=== PATIENT | male | born 1945 | race Caucasian/White ===

== ENCOUNTER 2018-04-18 15:12 | Inpatient (IN) ==
[2018-04-18 16:16] LABS: Baso # (Auto) 0.1 th/mm3 (0.0-0.2); Baso % (Auto) 0.7 % (0.0-2.0); Eos # (Auto) 0.3 th/mm3 (0.0-0.4); Eos % (Auto) 4.2 % (0.0-4.0); Hematocrit 26.7 % (39.0-51.0); Hemoglobin 8.9 gm/dL (13.0-17.0); Lymph # (Auto) 0.7 th/mm3 (1.0-4.8); Lymph % (Auto) 8.3 % (9.0-44.0); Mean Corpuscular HGB Conc 33.2 % (32.0-36.0); Mean Corpuscular Hemoglobin 28.4 pg (27.0-34.0); Mean Corpuscular Volume 85.5 fL (80.0-100.0); Mean Platelet Volume 7.6 fL (7.0-11.0); Mono # (Auto) 0.7 th/mm3 (0.0-0.9); Mono % (Auto) 8.9 % (0.0-8.0); Neut # (Auto) 6.1 th/mm3 (1.8-7.7); Neut % (Auto) 77.9 % (16.0-70.0); Platelet Count 224 th/mm3 (150-450); Red Blood Count 3.13 mil/mm3 (4.50-5.90); Red Cell Distribution Width 16.4 % (11.6-17.2); White Blood Count 7.8 th/mm3 (4.0-11.0)
[2018-04-18 16:31] LABS: Activated Partial Thrombo Time 30.1 sec (23.4-31.7); Prothrombin Time 10.1 sec (9.8-11.6)
--- NOTE | 2018-04-18 16:33 | XR ---
EXAM DATE: 04/18/2018 4:26 PM EST AGE/SEX: 72 years / Male INDICATIONS: Shortness of breath. CLINICAL DATA: This is the patient's initial encounter. Patient reports that signs and symptoms have been present for 1 day and indicates a pain score of 0/10. MEDICAL/SURGICAL HISTORY: . Hypertension. Congestive heart failure. Myocardial infarction. Diab etic. COPD. None. [place] [facility] [place]. . FINDINGS: A single AP view of the chest demonstrates the lungs to be symmetrically aerated without evidence of focal consolidation or pleural effusion. The cardiomediastinal contours are at upper limits of nba l in size. Calcific thoracic aorta. Postoperative changes of the cervical spine. Degenerative change s of the thoracic spine. CONCLUSION: The cardiomediastinal contours are at upper limits of normal in size. No focal consolidation. Electronically signed by: Chantell Land MD Board Certified Radiologist 04/18/2018 4:31 PM EST
[2018-04-18 16:48] LABS: Alanine Aminotransferase 16 U/L (12-78); Anion Gap 10 meq/L (5-15); Aspartate Aminotransferase 15 U/L (15-37); Blood Urea Nitrogen 23 mg/dL (7-18); Calcium 8.5 mg/dL (8.5-10.1); Carbon Dioxide 26.2 meq/L (21.0-32.0); Chloride 106 meq/L (98-107); Glomerular Filtration Rate 47 mL/min (>89); Glucose,Random 206 mg/dL (74-106); Potassium 4.1 meq/L (3.5-5.1); Sodium 142 meq/L (136-145)
[2018-04-18 16:53] LABS: Alkaline Phosphatase 145 U/L (45-117); Total Protein 7.4 g/dL (6.4-8.2)
[2018-04-18 16:55] LABS: Creatine Kinase 33 U/L (39-308)
--- NOTE | 2018-04-18 17:25 | ED ---
HPI General Chief complaint: Respiratory Symptoms Stated complaint: Resp Time Seen by Provider: 04/18/18 15:29 Source: patient and family Mode of arrival: ambulatory Limitations: no limitations History of Present Illness HPI narrative: 72-year-old male who presents to the ED for evaluation of shortness of breath with exertion. Per patient he has had shortness of breath with exertion in the past and positive ostomy. He has had significant cardiac workup in the past but nothing recently. He states that he had a stress test in the past this is been a while. He denies any history of CHF. He denies any history of COPD. He states that overall he went to the [facility] in [place] and they were doing a lot of hiking and moving around and he started feeling very short of breath with exertion having some chest discomfort as well. Denies any fevers chills or sweats. No cough. No congestion. No abdominal pain. No nausea or vomiting. No bowel movement or urinary issues. Patient states currently he has no chest pain whatsoever. He has no pain. Currently asymptomatic and states this only when he ambulates for a little bit. Related Data Home Medications Medication Instructions Recorded Confirmed atorvastatin 40 mg PO DAILY 04/18/18 04/18/18 bupropion HCl 300 mg PO QAM 04/18/18 04/18/18 carvedilol 25 mg PO DAILY 04/18/18 04/18/18 metformin 1,000 mg PO BID 04/18/18 04/18/18 olmesartan-hydrochlorothiazide 1 tab PO DAILY 04/18/18 04/18/18 [Benicar HCT] pioglitazone [Actos] 45 mg PO DAILY 04/18/18 04/18/18 sitagliptin [Januvia] 100 mg PO DAILY 04/18/18 04/18/18 Allergies Allergy/AdvReac Type Severity Reaction Status Date / Time penicillin G Allergy Severe hives Verified 04/18/18 15:42 Sulfa (Sulfonamide Allergy Severe hives Verified 04/18/18 15:42 Antibiotics) Review of Systems ROS: all other systems reviewed are negative [facility] Medical History Medical History CPAP (continuous positive airway pressure) dependence (Acute) Diabetes (Acute) Hypertension (Acute) Myocardial infarct (Acute) Surgical History Surgical History H/O neck surgery (Acute) Social History Social History Substance History: No History of Abuse Smoking Status: Former smoker Tobacco Type: Cigarettes How Often Do You Have a Drink Containing Alcohol: 2 to 4 times a month Recent Travel in [facility] within the Last 8 Weeks: No Recent Out of Country Travel within the Last 8 Weeks: No Immunization History Tetanus Immunization: >5 Years Exam Narrative Exam Narrative: GENERAL: Well appearing. SKIN: Focused skin assessment warm/dry. HEAD: Atraumatic. Normocephalic. EYES: Pupils equal and round. No scleral icterus. No injection or drainage. ENT: No nasal bleeding or discharge. Mucous membranes pink and moist. Tongue is midline. No Uvula deviation. NECK: Trachea midline. No JVD. CARDIOVASCULAR: Regular rate and rhythm. No murmur appreciated. RESPIRATORY: No accessory muscle use. Clear to auscultation. Breath sounds equal bilaterally. GASTROINTESTINAL: Abdomen soft, non-tender, nondistended. Hepatic and splenic margins not palpable. MUSCULOSKELETAL: No obvious deformities. No clubbing. No cyanosis. No edema. Full range of motion of the upper and lower extremities bilaterally. 2+ pulses bilaterally. Patient does have some 1+ pitting edema in the lower extremities which per patient is chronic. NEUROLOGICAL: Awake and alert. No obvious cranial nerve deficits. Motor grossly within normal limits. Normal speech. PSYCHIATRIC: Appropriate mood and affect; insight and judgment normal. Course Initial Documented Vital Signs Temperature 98.1 F 04/18/18 15:24 Pulse Rate 94 H 04/18/18 15:24 Respiratory Rate 20 04/18/18 15:24 Blood Pressure 169/72 H 04/18/18 15:24 Pulse Oximetry 96 04/18/18 15:24 Last Documented Vital Signs Temperature 98.1 F 04/18/18 15:24 Pulse Rate 87 04/18/18 16:05 Respiratory Rate 18 04/18/18 16:05 Blood Pressure 173/77 H 04/18/18 15:34 Pulse Oximetry 98 04/18/18 16:00 Medical Decision Making MDM Narrative Medical decision making narrative: 72-year-old male who presents to the ED for evaluation of shortness of breath with exertion. Patient was properly examined and was found to have signs and symptoms of unclear etiology. Labs and imaging were ordered. Labs and imaging showed positive d-dimer. CTA was done. CTA did not show any sign of acute disease certain what appears to be some calcifications of the arteries of the heart as well as nodules on the lung. Patient was told of results. Case was discussed with my attending and with what agreed that this could potentially be angina equivalent. Patient has difficulty breathing after exerting himself. He does have a history of heart disease. Cannot completely rule out angina equivalent. Because of this I do recommend admission for further evaluation and treatment and likely stress test. Patient agrees with admission to the chest pain center for further evaluation and treatment. Case discussed with Dr. Sen my attending who agrees with this plan. Medical Screen Exam Complete: Yes Emergency Medical Condition: Yes Differential Diagnosis Differential Diagnosis: ACS versus COPD versus angina equivalent versus PE versus pneumonia versus bronchitis versus CHF Medical Records Medical records reviewed: Yes I reviewed the patient's medical records. Lab Data Lab results reviewed: Yes I reviewed the patient's lab results. Result diagrams: 04/18/18 16:00 04/18/18 16:00 Lab Results 04/18/18 04/18/18 04/18/18 Range/Units 16:00 16:00 16:00 WBC 7.8 (4.0-11.0) th/mm3 RBC 3.13 L (4.50-5.90) mil/mm3 Hgb 8.9 L (13.0-17.0) gm/dL Hct 26.7 L (39.0-51.0) % MCV 85.5 (80.0-100.0) fL MCH 28.4 (27.0-34.0) pg MCHC 33.2 (32.0-36.0) % RDW 16.4 (11.6-17.2) % Plt Count 224 (150-450) th/mm3 MPV 7.6 (7.0-11.0) fL Neut % (Auto) 77.9 H (16.0-70.0) % Lymph % (Auto) 8.3 L (9.0-44.0) % Millard % (Auto) 8.9 H (0.0-8.0) % Eos % (Auto) 4.2 H (0.0-4.0) % Baso % (Auto) 0.7 (0.0-2.0) % Neut # (Auto) 6.1 (1.8-7.7) th/mm3 Lymph # (Auto) 0.7 L (1.0-4.8) th/mm3 Millard # (Auto) 0.7 (0.0-0.9) th/mm3 Eos # (Auto) 0.3 (0.0-0.4) th/mm3 Baso # (Auto) 0.1 (0.0-0.2) th/mm3 WBC Differential . Differential Comment Auto diff final PT 10.1 (9.8-11.6) sec INR 1.0 Ratio APTT 30.1 (23.4-31.7) sec D-Dimer Quant (PE/DVT) (0.00-0.50) mg/L FEU Sodium 142 (136-145) meq/L Potassium 4.1 (3.5-5.1) meq/L Chloride 106 (98-107) meq/L Carbon Dioxide 26.2 (21.0-32.0) meq/L Anion Gap 10 (5-15) meq/L BUN 23 H (7-18) mg/dL Creatinine 1.46 H (0.60-1.30) mg/dL Estimated GFR 47 L (>89) mL/min Random Glucose 206 H (74-106) mg/dL Calcium 8.5 (8.5-10.1) mg/dL Total Bilirubin 0.5 (0.2-1.0) mg/dL AST 15 (15-37) U/L ALT 16 (12-78) U/L Alkaline Phosphatase 145 H (45-117) U/L Total Creatine Kinase 33 L (39-308) U/L Troponin I Less than 0.02 L (0.02-0.05) ng/mL B-Natriuretic Peptide (0-100) pg/mL Total Protein 7.4 (6.4-8.2) g/dL Albumin 3.0 L (3.4-5.0) g/dL 04/18/18 04/18/18 Range/Units 16:00 16:00 WBC (4.0-11.0) th/mm3 RBC (4.50-5.90) mil/mm3 Hgb (13.0-17.0) gm/dL Hct (39.0-51.0) % MCV (80.0-100.0) fL MCH (27.0-34.0) pg MCHC (32.0-36.0) % RDW (11.6-17.2) % Plt Count (150-450) th/mm3 MPV (7.0-11.0) fL Neut % (Auto) (16.0-70.0) % Lymph % (Auto) (9.0-44.0) % Millard % (Auto) (0.0-8.0) % Eos % (Auto) (0.0-4.0) % Baso % (Auto) (0.0-2.0) % Neut # (Auto) (1.8-7.7) th/mm3 Lymph # (Auto) (1.0-4.8) th/mm3 Millard # (Auto) (0.0-0.9) th/mm3 Eos # (Auto) (0.0-0.4) th/mm3 Baso # (Auto) (0.0-0.2) th/mm3 WBC Differential Differential Comment PT (9.8-11.6) sec INR Ratio APTT (23.4-31.7) sec D-Dimer Quant (PE/DVT) 4.37 H (0.00-0.50) mg/L FEU Sodium (136-145) meq/L Potassium (3.5-5.1) meq/L Chloride (98-107) meq/L Carbon Dioxide (21.0-32.0) meq/L Anion Gap (5-15) meq/L BUN (7-18) mg/dL Creatinine (0.60-1.30) mg/dL Estimated GFR (>89) mL/min Random Glucose (74-106) mg/dL Calcium (8.5-10.1) mg/dL Total Bilirubin (0.2-1.0) mg/dL AST (15-37) U/L ALT (12-78) U/L Alkaline Phosphatase (45-117) U/L Total Creatine Kinase (39-308) U/L Troponin I (0.02-0.05) ng/mL B-Natriuretic Peptide 170 H (0-100) pg/mL Total Protein (6.4-8.2) g/dL Albumin (3.4-5.0) g/dL Imaging Data Attestation: I personally reviewed and interpreted this imaging study as follows : Radiologist's impression: Chest X-Ray 04/18/18 15:49 CONCLUSION: The cardiomediastinal contours are at upper limits of normal in size. No focal consolidation. Chest CTA 04/18/18 17:37 CONCLUSION: 1. No CT evidence for pulmonary artery embolism as questioned. 2. 11 mm right upper lobe subpleural nodule, stable in comparison to report of 2014 CT exam. Therefore, likely benign. 3. 5 mm nodule in the right middle lobe adjacent a calcified granuloma. This was not previously reported although prior exams are not available for direct comparison. Routine follow-up of sub-6 mm nodules is not recommended by 2017 Fleischner criteria. However, 6-12 month follow-up exam may be obtained if patient is at high risk. 4. Coronary artery calcifications. ECG Data Attestation: I personally reviewed and interpreted this ECG as follows: Interpretation: EKG shows sinus rhythm with some PVCs. AZ interval 174 ms, ventricular rate of 82 bpm. No sign of ST elevation or ischemia. Discharge Plan Discharge Disposition Patient Disposition: ED Admit(ED Internal Use Only) Discharge Order Discharge Orders: ED Use Only Admit Order (Routine); Ordered 04/18/18 Ordered By: Osvaldo Rodríguez Discharge Details Diagnosis: Chest pain, rule out acute myocardial infarction Physicians Team ED Provider: Trish Sen ED Midlevel Provider: Osvaldo Rodríguez Primary Care Provider: Jonathan Rey Rxs /Orders / Referrals /Forms Prescriptions: No Action atorvastatin 40 mg Tablet 40 mg PO DAILY RF: 0 carvedilol 25 mg Tablet 25 mg PO DAILY RF: 0 pioglitazone [Actos] 45 mg Tablet 45 mg PO DAILY RF: 0 metformin 1,000 mg Tablet 1,000 mg PO BID RF: 0 olmesartan-hydrochlorothiazide [Benicar HCT] 40-12.5 mg Tablet 1 tab PO DAILY RF: 0 bupropion HCl 300 mg Tablet Extended Release 24 Hr 300 mg PO QAM RF: 0 sitagliptin [Januvia] 100 mg Tablet 100 mg PO DAILY RF: 0 Discharge Interventions Interventions: Vital Signs Last Done: 04/18/18 15:34 Status ED Status: Admitted Observation Patient
--- NOTE | 2018-04-18 18:06 | CT ---
EXAM DATE: 04/18/2018 5:59 PM EST AGE/SEX: 72 years / Male INDICATIONS: Dyspnea CLINICAL DATA: This is the patient's initial encounter. Patient reports that signs and symptoms have been present for 2 days and indicates a pain score of 6/10. MEDICAL/SURGICAL HISTORY: Diabetes. Hypertension. Myocardial infarction. . Neck Surgery RADIATION DOSE: 10.75 CTDI (mGy) COMPARISON: [facility] – [place] PULMONARY ANGIOGRAM, 01/07/2014. . TECHNIQUE: Volumetric scanning was performed using a multi-row detector CT scanner during bolus infu tahmina of 74 ml Omnipaque 350 (iohexol) nonionic water-soluble contrast as a single exam dose. The nidhi a was post processed with a variety of visualization algorithms including full volume maximum intensi ty projection and sliding thin slab reformation. Using automated exposure control and adjustment of the mA and/or kV according to patient size, radiation dose was kept as low as reasonably achievable t o obtain optimal diagnostic quality images. DICOM format image data is available electronically for review and comparison. FINDINGS: Pulmonary Arteries: No filling defects are seen in the pulmonary arteries through the segmental vess els. The main pulmonary artery is normal in diameter. Lung: There is an 11 mm subpleural nodule in the right upper lobe posteriorly which is unchanged in comparison to report of remote prior exam. There is a 5 mm nodule in the superior right middle lobe a djacent a calcified granuloma. This was not previously reported. Minimal airspace consolidation at th e lung bases bilaterally adjacent pleural fluid. Pleura: Trace right-sided pleural effusion and very subtle left-sided pleural effusion. Mediastinum: Heart is grossly unremarkable without significant pericardial effusion. Coronary artery calcifications. Subcentimeter mediastinal and right hilar lymph nodes are noted. Osseous Structures: No abnormal focal lytic or blastic bony lesions. Degenerative spondylosis of the thoracic spine. Other: Visulaized upper abdomen is unremarkable. CONCLUSION: 1. No CT evidence for pulmonary artery embolism as questioned. 2. 11 mm right upper lobe subpleural nodule, stable in comparison to report of 2014 CT exam. Therefo re, likely benign. 3. 5 mm nodule in the right middle lobe adjacent a calcified granuloma. This was not previously repo rted although prior exams are not available for direct comparison. Routine follow-up of sub-6 mm nodu les is not recommended by 2017 Fleischner criteria. However, 6-12 month follow-up exam may be obtaine d if patient is at high risk. 4. Coronary artery calcifications. Electronically signed by: Pedro Pablo Pleitez MD Board Certified Radiologist 04/18/2018 6:05 PM BEENA T
[2018-04-18] MEDS ORDERED: Acetaminophen 500 MG Tablet PO PRN (18:29)
[2018-04-18 20:03] LABS: Creatine Kinase 32 U/L (39-308)
[2018-04-18 22:40] LABS: Creatine Kinase 38 U/L (39-308)
[2018-04-19] MEDS: Carvedilol 12.5 MG Tablet PO SCH (08:27)
[2018-04-19] MEDS: buPROPion 100 MG Tablet PO SCH (08:28)
[2018-04-19] MEDS: hydroCHLOROthiazide 25 MG Tablet PO SCH (08:30)
--- NOTE | 2018-04-19 11:48 | P.HPCA ---
History of Present Illness Primary Care Physician: Jonathan Rey MD Chief Complaint: Exertional dyspnea History of Present Illness: 72-year-old male with history of type 2 diabetes, hypertension, peripheral artery disease, and sleep apnea presents the emergency room for exertional dyspnea. Onset 04/13/18. Becomes dyspneic after walking short distances which is new to him. Dyspnea accompanied with chest tightness. Generally recovers from dyspnea and chest tightness within 3-5 minutes of resting. No other associated symptoms of nausea, vomiting, or diaphoresis. Denies known congestive heart failure. No orthopnea. follows with Dr. Carias. No recent cardiac testing. Does not recall the past cardiac catheterization, although reports being told had a myocardial infarction by his cardiology technologist. No change in chronic pedal edema or weight gain. Hemoglobin 8.9. Denies history of anemia. Reports 1 week black tarry stools. No history gastric ulcers or GERD. Occasionally takes ibuprofen 800 mg for left hip pain, however limites self from taking past 4 days consecutively. History of colonoscopy reported to be normal 2 years ago. Does not recall having had EGD. No recent illness, fever, or injury. Past cardiac testing Per reviewed medical records had a nuclear stress test February 02 showing evidence for prior inferior OH with basal inferolateral ischemia and had been treated medically. Social history Known diabetes, hypertension, coronary artery disease, and hyperlipidemia. Known peripheral arterial disease. Former 3 pack a day smoker, quit 20 years ago. . 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 Endorses sedentary lifestyle. - Diagnosis (1) Dyspnea on exertion (2) Anemia (3) Type 2 diabetes mellitus (4) Black tarry stools Review of Systems All other systems reviewed negative except as stated in HPI PMFSH - History History Provided By: Patient - Medical History Medical History: Medical History (Last Updated 04/19/18 @ 13:57 by EVIE Coyne) Cervical disc disease Chronic kidney disease, stage III (moderate) Congestive heart failure Diabetes Hyperlipidemia Hypertension Myocardial infarct Osteoarthritis Peripheral arterial disease Sleep apnea - Surgical History Surgical History: Surgical History (Last Updated 04/19/18 @ 13:58 by EVIE Coyne) H/O cervical spine surgery H/O neck surgery - Tobacco History Second Hand Smoke Exposure: No Tobacco Use In Past 30 Days: No Smoking Status: Former smoker Tobacco Type: Cigarettes Number of Pack Years (if former smoker): 96 Smoking End Date: 20 years ago - Alcohol History How Often Do You Have a Drink Containing Alcohol: Monthly or less - Substance Use History Substance History: No History of Abuse - Travel History Recent Travel in the [place] Within the Last 8 Weeks: No Recent Travel Out of the Country Within the Last 8 Weeks: No - Immunization History Tetanus Immunization: >5 Years Medications and Allergies Active Medications: Active Medications Acetaminophen (Tylenol) 500 mg PO Q4H PRN PRN Reason: HEADACHE Hydrocodone Bitart/Acetaminophen ([place] 7.5/325) 1 tab PO Q4H PRN PRN Reason: PAIN SCALE 1 TO 7 Atorvastatin Calcium (Lipitor) 40 mg PO DAILY [facility] Last Admin: 04/19/18 08:27 Dose: 40 mg Bupropion HCl (Wellbutrin) 300 mg PO DAILY [facility] Last Admin: 04/19/18 08:28 Dose: 300 mg Carvedilol (Coreg) 25 mg PO DAILY [facility] Last Admin: 04/19/18 08:27 Dose: 25 mg Hydrochlorothiazide (Hydrodiuril) 12.5 mg PO DAILY [facility] Last Admin: 04/19/18 08:30 Dose: 12.5 mg Losartan Potassium (Cozaar) 100 mg PO DAILY [facility] Last Admin: 04/19/18 08:27 Dose: 100 mg Miscellaneous (Pill Splitter) 1 each OTHER UNSCH [facility] Ondansetron HCl (Zofran Inj) 4 mg IV.PUSH Q6H PRN PRN Reason: NAUSEA Sodium Chloride (Ns Flush) 2 ml IV.FLUSH BID [facility] Last Admin: 04/19/18 08:28 Dose: 2 ml Sodium Chloride (Ns Flush) 2 ml IV.FLUSH PRN PRN PRN Reason: FLUSH AFTER USING IV ACCESS Allergies Allergy/AdvReac Type Severity Reaction Status Date / Time penicillin G Allergy Severe hives Verified 04/18/18 15:42 Sulfa (Sulfonamide Allergy Severe hives Verified 04/18/18 15:42 Antibiotics) Home Medications Medication Instructions Recorded Confirmed Type atorvastatin 40 mg PO DAILY 04/18/18 04/18/18 History bupropion HCl 300 mg PO QAM 04/18/18 04/18/18 History carvedilol 25 mg PO DAILY 04/18/18 04/18/18 History metformin 1,000 mg PO BID 04/18/18 04/18/18 History olmesartan-hydrochlorothiazide 1 tab PO DAILY 04/18/18 04/18/18 History [Benicar HCT] pioglitazone [Actos] 45 mg PO DAILY 04/18/18 04/18/18 History sitagliptin [Januvia] 100 mg PO DAILY 04/18/18 04/18/18 History Exam Vital signs: Vital Signs 04/18/18 15:24 04/18/18 15:30 04/18/18 15:34 Temperature 98.1 F Pulse Rate 94 H 87 Respiratory Rate 20 18 Blood Pressure 169/72 H 173/77 H Pulse Oximetry 96 94 L 98 04/18/18 16:00 04/18/18 16:05 04/18/18 18:37 Temperature Pulse Rate 87 83 Respiratory Rate 18 18 Blood Pressure Pulse Oximetry 98 98 04/18/18 19:18 04/18/18 20:00 04/18/18 20:15 Temperature 96.6 F L Pulse Rate 77 89 79 Respiratory Rate 18 17 Blood Pressure 105/49 L 179/81 H Pulse Oximetry 98 94 L 04/19/18 04:20 04/19/18 04:33 04/19/18 05:08 Temperature 97.7 F Pulse Rate 88 86 84 Respiratory Rate 18 Blood Pressure 149/69 H Pulse Oximetry 98 04/19/18 07:10 Temperature 96.7 F L Pulse Rate 88 Respiratory Rate 20 Blood Pressure 189/84 H Pulse Oximetry 97 Intake & Output 04/18/18 04/19/18 04/19/18 18:59 06:59 18:59 Weight 122.47 kg 122.47 kg Other: Date of Last Bowel Movement 04/18/18 04/18/18 Narrative: GENERAL: Alert WN, WD, NAD, pleasant, obese, male HEAD: NC, AT NECK: Supple, no masses, trachea midline CV: RRR, without murmur, rub, or gallop RESP: Clear lungs throughout bilateral, no crackles, wheeze, rhonchi, symmetrical chest rise, nonlabored, able to speak in full sentences ABD: Soft, NT, ND, no masses, positive bowel tone, grossly obese EXT: Pulses +2x4, +2 lower extremity dependent edema MS: Normal tone x4 extremities, nontender, no obvious deformities, full range of motion NEURO: Motor strength 5/5 PSYCH: A+O x3, pleasant affect, appropriate speech, mood, insight and judgment SKIN: Normal turgor, normal texture, no lesions, no rashes, brisk cap refill, even hair distribution Results 04/18/18 16:00 04/18/18 16:00 Cardiac Enzymes 04/18/18 04/18/18 04/18/18 Range/Units 16:00 16:00 19:24 AST 15 (15-37) U/L Troponin I Less than 0.02 L Less than 0.02 L (0.02-0.05) ng/mL B-Natriuretic Peptide 170 H (0-100) pg/mL 04/18/18 Range/Units 21:45 AST (15-37) U/L Troponin I Less than 0.02 L (0.02-0.05) ng/mL B-Natriuretic Peptide (0-100) pg/mL Coagulation 04/18/18 04/18/18 Range/Units 16:00 16:00 PT 10.1 (9.8-11.6) sec APTT 30.1 (23.4-31.7) sec B-Natriuretic Peptide 170 H (0-100) pg/mL CBC 04/18/18 Range/Units 16:00 WBC 7.8 (4.0-11.0) th/mm3 RBC 3.13 L (4.50-5.90) mil/mm3 Hgb 8.9 L (13.0-17.0) gm/dL Hct 26.7 L (39.0-51.0) % Plt Count 224 (150-450) th/mm3 Neut # (Auto) 6.1 (1.8-7.7) th/mm3 Lymph # (Auto) 0.7 L (1.0-4.8) th/mm3 [place] # (Auto) 0.7 (0.0-0.9) th/mm3 Eos # (Auto) 0.3 (0.0-0.4) th/mm3 Baso # (Auto) 0.1 (0.0-0.2) th/mm3 Comprehensive Metabolic Panel 04/18/18 Range/Units 16:00 Sodium 142 (136-145) meq/L Potassium 4.1 (3.5-5.1) meq/L Chloride 106 (98-107) meq/L Carbon Dioxide 26.2 (21.0-32.0) meq/L BUN 23 H (7-18) mg/dL Creatinine 1.46 H (0.60-1.30) mg/dL Calcium 8.5 (8.5-10.1) mg/dL AST 15 (15-37) U/L ALT 16 (12-78) U/L Alkaline Phosphatase 145 H (45-117) U/L Total Protein 7.4 (6.4-8.2) g/dL Albumin 3.0 L (3.4-5.0) g/dL Intake and Output 04/18/18 04/19/18 04/19/18 22:59 06:59 14:59 Other: Date of Last Bowel Movement 04/18/18 04/18/18 Weight 122.47 kg - Imaging and Cardiology Imaging: Impressions Chest X-Ray 04/18/18 15:49 CONCLUSION: The cardiomediastinal contours are at upper limits of normal in size. No focal consolidation. Chest CTA 04/18/18 17:37 CONCLUSION: 1. No CT evidence for pulmonary artery embolism as questioned. 2. 11 mm right upper lobe subpleural nodule, stable in comparison to report of 2014 CT exam. Therefore, likely benign. 3. 5 mm nodule in the right middle lobe adjacent a calcified granuloma. This was not previously reported although prior exams are not available for direct comparison. Routine follow-up of sub-6 mm nodules is not recommended by 2017 Fleischner criteria. However, 6-12 month follow-up exam may be obtained if patient is at high risk. 4. Coronary artery calcifications. EKG interpretations - EKG EKG results cardiology: sinus rhythm, normal axis, normal QRS, normal ST/T (PVCs ) Caprini VTE Risk Assessment Caprini VTE Risk Assessment: Moderate/High Risk (score >= 2) Caprini Risk Assessment Model: Point Value = 1 Point Value = 2 Point Value = 3 Point Value = 5 Age 41-60 Minor surgery BMI > 25 kg/m2 Swollen legs Varicose veins or History of unexplained or recurrent spontaneous Oral contraceptives or hormone replacement Sepsis (< 1 month) Serious lung disease, including pneumonia (< 1 month) Abnormal pulmonary function Acute myocardial infarction Congestive heart failure (< 1 month) History of inflammatory bowel disease Medical patient at bed rest Age 61-74 Arthroscopic surgery Major open surgery (> 45 min) Laparoscopic surgery (> 45 min) Malignancy Confined to bed (> 72 hours) Immobilizing plaster cast Central venous access Age >= 75 History of VTE Family history of VTE Factor V Leiden Prothrombin [id number] Lupus anticoagulant Anticardiolipin antibodies Elevated serum homocysteine Heparin-induced thrombocytopenia Other congenital or acquired thrombophilia Stroke (< 1 month) Elective arthroplasty Hip, pelvis, or leg fracture Acute spinal cord injury (< 1 month) Prophylaxis Regimen: Total Risk Factor Score Risk Level Prophylaxis Regimen 0-1 Low Early ambulation 2 Moderate Order ONE of the following: *Sequential Compression Device (SCD) *Heparin 5000 units SQ BID 3-4 Higher Order ONE of the following medications: *Heparin 5000 units SQ TID *Enoxaparin/Lovenox 40 mg SQ daily (WT < 150 kg, CrCl > 30 mL/min) *Enoxaparin/Lovenox 30 mg SQ daily (WT < 150 kg, CrCl > 10-29 mL/min) *Enoxaparin/Lovenox 30 mg SQ BID (WT < 150 kg, CrCl > 30 mL/min) AND/OR *Sequential Compression Device (SCD) 5 or more Highest Order ONE of the following medications: *Heparin 5000 units SQ TID (Preferred with Epidurals) *Enoxaparin/Lovenox 40 mg SQ daily (WT < 150 kg, CrCl > 30 mL/min) *Enoxaparin/Lovenox 30 mg SQ daily (WT < 150 kg, CrCl > 10-29 mL/min) *Enoxaparin/Lovenox 30 mg SQ BID (WT < 150 kg, CrCl > 30 mL/min) AND *Sequential Compression Device (SCD) Assessment and Plan - Assessment (1) Dyspnea on exertion Code(s): R06.09 - Other forms of dyspnea Status: Acute Plan: Admitted chest pain center. ACS ruled out 3 sets of EKGs and cardiac enzymes. Will be seen and evaluated by Dr. Estuardo Stokes. Dyspnea may be related to low hemoglobin of 8.9. Discussed likely will get evaluation from GI prior to any further cardiac testing. The disposition of follow after evaluation by cardiology technologist. (2) Anemia Code(s): D64.9 - Anemia, unspecified Status: Acute Plan: Occult stool, reports black tarry stools. Likely will obtain GI consult and admit as inpatient. (3) Type 2 diabetes mellitus Code(s): E11.9 - Type 2 diabetes mellitus without complications Status: Chronic Plan: Hold oral anti-glycemic's at this time (4) Black tarry stools Code(s): K92.1 - Melena Status: Acute Plan: Discussed with Dr. Stokes. Admit to hospitalist and obtain GI consult. Obtain occult stool. H&P: Quality - VTE Deep Vein Thrombosis/Pulmonary Embolism Present on Admission: No (2) Anemia Qualifiers: Anemia type: unspecified type Qualified Code(s): D64.9 - Anemia, unspecified
--- NOTE | 2018-04-19 12:18 | P.PNCA ---
Subjective Interval history: 72-year-old gentleman presented by the nurse practitioner and then subsequently seen and evaluated by me personally. History is as reported in her dictation. In essence this gentleman had blood in his stools followed by black stools now for several weeks associated with shortness of breath and now a documented anemia of hemoglobin 8.9. His evaluation in the emergency room has revealed several nodules of the lungs 1 of which appears to be stable one possibly new and also calcified coronary arteries. Patient is followed on an outpatient basis by Dr. Rey and Dr. Carias who is followed him since a heart attack 2 years ago. In addition he has a long history of hypertension and about a 20+ year history of diabetes. It is interesting to note that he did not contacted Dr. Rey when he noted he had the blood in his stool or the "black tarry stools". Further inpatient evaluation is felt essential at this time and I made him aware of why that was the case. Medications and Allergies Active Medications: Active Medications Acetaminophen (Tylenol) 500 mg PO Q4H PRN PRN Reason: HEADACHE Hydrocodone Bitart/Acetaminophen ([place] 7.5/325) 1 tab PO Q4H PRN PRN Reason: PAIN SCALE 1 TO 7 Atorvastatin Calcium (Lipitor) 40 mg PO DAILY [facility] Last Admin: 04/19/18 08:27 Dose: 40 mg Bupropion HCl (Wellbutrin) 300 mg PO DAILY [facility] Last Admin: 04/19/18 08:28 Dose: 300 mg Carvedilol (Coreg) 25 mg PO DAILY [facility] Last Admin: 04/19/18 08:27 Dose: 25 mg Hydrochlorothiazide (Hydrodiuril) 12.5 mg PO DAILY [facility] Last Admin: 04/19/18 08:30 Dose: 12.5 mg Losartan Potassium (Cozaar) 100 mg PO DAILY [facility] Last Admin: 04/19/18 08:27 Dose: 100 mg Miscellaneous (Pill Splitter) 1 each OTHER UNSCH [facility] Ondansetron HCl (Zofran Inj) 4 mg IV.PUSH Q6H PRN PRN Reason: NAUSEA Sodium Chloride (Ns Flush) 2 ml IV.FLUSH BID [facility] Last Admin: 04/19/18 08:28 Dose: 2 ml Sodium Chloride (Ns Flush) 2 ml IV.FLUSH PRN PRN PRN Reason: FLUSH AFTER USING IV ACCESS Allergies Allergy/AdvReac Type Severity Reaction Status Date / Time penicillin G Allergy Severe hives Verified 04/18/18 15:42 Sulfa (Sulfonamide Allergy Severe hives Verified 04/18/18 15:42 Antibiotics) Home Medications Medication Instructions Recorded Confirmed Type atorvastatin 40 mg PO DAILY 04/18/18 04/18/18 History bupropion HCl 300 mg PO QAM 04/18/18 04/18/18 History carvedilol 25 mg PO DAILY 04/18/18 04/18/18 History metformin 1,000 mg PO BID 04/18/18 04/18/18 History olmesartan-hydrochlorothiazide 1 tab PO DAILY 04/18/18 04/18/18 History [Benicar HCT] pioglitazone [Actos] 45 mg PO DAILY 04/18/18 04/18/18 History sitagliptin [Januvia] 100 mg PO DAILY 04/18/18 04/18/18 History Physical Exam Vital signs: Vital Signs 04/18/18 15:24 04/18/18 15:30 04/18/18 15:34 Temperature 98.1 F Pulse Rate 94 H 87 Respiratory Rate 20 18 Blood Pressure 169/72 H 173/77 H Pulse Oximetry 96 94 L 98 04/18/18 16:00 04/18/18 16:05 04/18/18 18:37 Temperature Pulse Rate 87 83 Respiratory Rate 18 18 Blood Pressure Pulse Oximetry 98 98 04/18/18 19:18 04/18/18 20:00 04/18/18 20:15 Temperature 96.6 F L Pulse Rate 77 89 79 Respiratory Rate 18 17 Blood Pressure 105/49 L 179/81 H Pulse Oximetry 98 94 L 04/19/18 04:20 04/19/18 04:33 04/19/18 05:08 Temperature 97.7 F Pulse Rate 88 86 84 Respiratory Rate 18 Blood Pressure 149/69 H Pulse Oximetry 98 04/19/18 07:10 04/19/18 08:00 04/19/18 11:58 Temperature 96.7 F L 98.4 F Pulse Rate 88 85 83 Respiratory Rate 20 20 Blood Pressure 189/84 H 178/81 H Pulse Oximetry 97 100 Intake & Output 04/18/18 04/19/18 04/19/18 18:59 06:59 18:59 Weight 122.47 kg 122.47 kg Other: Date of Last Bowel Movement 04/18/18 04/18/18 Narrative: Somewhat obese white man sitting at the side of his bed in no distress at this time. He does demonstrate a slight pallor to his skin and mucous membranes. Neck supple no JVD masses nodes or bruits Chest significantly decreased breath sounds but no rales wheezes or rhonchi Cardiovascular regular rhythm with an occasional extrasystole no gallops or rubs Abdomen soft no guarding or rebound no masses palpable Results 04/18/18 16:00 04/18/18 16:00 Cardiac Enzymes 04/18/18 04/18/18 04/18/18 Range/Units 16:00 16:00 19:24 AST 15 (15-37) U/L Troponin I Less than 0.02 L Less than 0.02 L (0.02-0.05) ng/mL B-Natriuretic Peptide 170 H (0-100) pg/mL 04/18/18 Range/Units 21:45 AST (15-37) U/L Troponin I Less than 0.02 L (0.02-0.05) ng/mL B-Natriuretic Peptide (0-100) pg/mL Coagulation 04/18/18 04/18/18 Range/Units 16:00 16:00 PT 10.1 (9.8-11.6) sec APTT 30.1 (23.4-31.7) sec B-Natriuretic Peptide 170 H (0-100) pg/mL CBC 04/18/18 Range/Units 16:00 WBC 7.8 (4.0-11.0) th/mm3 RBC 3.13 L (4.50-5.90) mil/mm3 Hgb 8.9 L (13.0-17.0) gm/dL Hct 26.7 L (39.0-51.0) % Plt Count 224 (150-450) th/mm3 Neut # (Auto) 6.1 (1.8-7.7) th/mm3 Lymph # (Auto) 0.7 L (1.0-4.8) th/mm3 [place] # (Auto) 0.7 (0.0-0.9) th/mm3 Eos # (Auto) 0.3 (0.0-0.4) th/mm3 Baso # (Auto) 0.1 (0.0-0.2) th/mm3 Comprehensive Metabolic Panel 04/18/18 Range/Units 16:00 Sodium 142 (136-145) meq/L Potassium 4.1 (3.5-5.1) meq/L Chloride 106 (98-107) meq/L Carbon Dioxide 26.2 (21.0-32.0) meq/L BUN 23 H (7-18) mg/dL Creatinine 1.46 H (0.60-1.30) mg/dL Calcium 8.5 (8.5-10.1) mg/dL AST 15 (15-37) U/L ALT 16 (12-78) U/L Alkaline Phosphatase 145 H (45-117) U/L Total Protein 7.4 (6.4-8.2) g/dL Albumin 3.0 L (3.4-5.0) g/dL Intake and Output 04/18/18 04/19/18 04/19/18 22:59 06:59 14:59 Other: Date of Last Bowel Movement 04/18/18 04/18/18 Weight 122.47 kg - Imaging and Cardiology Imaging: Impressions Chest X-Ray 04/18/18 15:49 CONCLUSION: The cardiomediastinal contours are at upper limits of normal in size. No focal consolidation. Chest CTA 04/18/18 17:37 CONCLUSION: 1. No CT evidence for pulmonary artery embolism as questioned. 2. 11 mm right upper lobe subpleural nodule, stable in comparison to report of 2014 CT exam. Therefore, likely benign. 3. 5 mm nodule in the right middle lobe adjacent a calcified granuloma. This was not previously reported although prior exams are not available for direct comparison. Routine follow-up of sub-6 mm nodules is not recommended by 2017 Fleischner criteria. However, 6-12 month follow-up exam may be obtained if patient is at high risk. 4. Coronary artery calcifications. Assessment and Plan - Plan This patient has a known history of coronary artery disease with a previous LA and is now significantly anemic with a reported "black tarry stools". In addition he has some nondescript nodules in his lungs and an EKG showing some slight flattening of the T waves possible ischemic. He is certainly not a candidate for further cardiac evaluation by stress testing at this time and clearly needs emergent evaluation for probable GI bleed. Recommendation is for admission to the hospital for full and complete evaluation.
--- NOTE | 2018-04-19 14:11 | P.CONGI ---
History of Present Illness Consult date: 04/19/18 Consult reason: GI bleed Chief complaint: Acute chest pain, R/O ACS, Angina History of Present Illness: This is a 72-year-old male who came into the hospital 04/18/2018 with symptoms of shortness of breath. He was initially seen and worked up per cardiology but during his workup it was noted that patient has had symptomatic anemia with melena stools times 2 weeks and some bright red rectal bleeding x3 times over the past month. Patient notes he does have some history of constipation and some straining, but usually bowel movements are every 1 or 2 days. Patient denies any diarrhea. Patient does note occasional dyspepsia which has seemed to worsen over the past 2 weeks but no dysphasia. He also notes symptoms of lightheadedness and dizziness especially when standing up or after eating and Advil on a chronic basis. Patient denies any family history of colon cancer and notes last colonoscopy was approximately 10 years ago within normal limits. Patient notes no previous EGD. Labs were reviewed noting normal white count at 7.8, hemoglobin 8.9, positive d-dimer 4.37. CTA performed showing no pulmonary emboli. Gastroenterology was consulted to assist with his symptom management and plan of care. <Taisha Romano - Last Filed: 04/19/18 14:16> Review of Systems All other systems reviewed negative except as stated in HPI <Taisha Romano - Last Filed: 04/19/18 14:16> PMFSH - History History Provided By: Patient - Medical History Medical History: Medical History (Last Updated 04/19/18 @ 13:57 by EVIE Coyne) CPAP (continuous positive airway pressure) dependence Cervical disc disease Chronic kidney disease, stage III (moderate) Congestive heart failure Diabetes Hyperlipidemia Hypertension Myocardial infarct Osteoarthritis Peripheral arterial disease Sleep apnea - Surgical History Surgical History: Surgical History (Last Updated 04/19/18 @ 13:58 by EVIE Coyne) H/O cervical spine surgery H/O neck surgery - Tobacco History Second Hand Smoke Exposure: No Tobacco Use In Past 30 Days: No Smoking Status: Former smoker Tobacco Type: Cigarettes - Alcohol History How Often Do You Have a Drink Containing Alcohol: Monthly or less - Substance Use History Substance History: No History of Abuse - Travel History Recent Travel in the [facility] Within the Last 8 Weeks: No Recent Travel Out of the Country Within the Last 8 Weeks: No - Immunization History Tetanus Immunization: >5 Years <Taisha Romano - Last Filed: 04/19/18 14:16> - Medical History Medical History: Medical History (Last Updated 04/19/18 @ 13:57 by EVIE Coyne) CPAP (continuous positive airway pressure) dependence Cervical disc disease Chronic kidney disease, stage III (moderate) Congestive heart failure Diabetes Hyperlipidemia Hypertension Myocardial infarct Osteoarthritis Peripheral arterial disease Sleep apnea - Surgical History Surgical History: Surgical History (Last Updated 04/19/18 @ 13:58 by EVIE Coyne) H/O cervical spine surgery H/O neck surgery <James Lopez - Last Filed: 04/19/18 14:31> Medications and Allergies Active Medications: Active Medications Acetaminophen (Tylenol) 500 mg PO Q4H PRN PRN Reason: HEADACHE Hydrocodone Bitart/Acetaminophen ([place] 7.5/325) 1 tab PO Q4H PRN PRN Reason: PAIN SCALE 1 TO 7 Atorvastatin Calcium (Lipitor) 40 mg PO DAILY [facility] Last Admin: 04/19/18 08:27 Dose: 40 mg Bupropion HCl (Wellbutrin) 300 mg PO DAILY [facility] Last Admin: 04/19/18 08:28 Dose: 300 mg Carvedilol (Coreg) 25 mg PO DAILY [facility] Last Admin: 04/19/18 08:27 Dose: 25 mg Hydrochlorothiazide (Hydrodiuril) 12.5 mg PO DAILY [facility] Last Admin: 04/19/18 08:30 Dose: 12.5 mg Losartan Potassium (Cozaar) 100 mg PO DAILY [facility] Last Admin: 04/19/18 08:27 Dose: 100 mg Miscellaneous (Pill Splitter) 1 each OTHER UNSCH [facility] Ondansetron HCl (Zofran Inj) 4 mg IV.PUSH Q6H PRN PRN Reason: NAUSEA Polyethylene Glycol/Electrolytes (Colyte Liq) 4,000 ml PO ONCE ONE Stop: 04/20/18 14:01 Sodium Chloride (Ns Flush) 2 ml IV.FLUSH BID [facility] Last Admin: 04/19/18 08:28 Dose: 2 ml Sodium Chloride (Ns Flush) 2 ml IV.FLUSH PRN PRN PRN Reason: FLUSH AFTER USING IV ACCESS <Taisha Romano - Last Filed: 04/19/18 14:16> Active Medications: Active Medications Acetaminophen (Tylenol) 500 mg PO Q4H PRN PRN Reason: HEADACHE Hydrocodone Bitart/Acetaminophen ([place] 7.5/325) 1 tab PO Q4H PRN PRN Reason: PAIN SCALE 1 TO 7 Atorvastatin Calcium (Lipitor) 40 mg PO DAILY [facility] Last Admin: 04/19/18 08:27 Dose: 40 mg Bupropion HCl (Wellbutrin) 300 mg PO DAILY [facility] Last Admin: 04/19/18 08:28 Dose: 300 mg Carvedilol (Coreg) 25 mg PO DAILY [facility] Last Admin: 04/19/18 08:27 Dose: 25 mg Hydrochlorothiazide (Hydrodiuril) 12.5 mg PO DAILY [facility] Last Admin: 04/19/18 08:30 Dose: 12.5 mg Losartan Potassium (Cozaar) 100 mg PO DAILY [facility] Last Admin: 04/19/18 08:27 Dose: 100 mg Miscellaneous (Pill Splitter) 1 each OTHER UNSCH [facility] Ondansetron HCl (Zofran Inj) 4 mg IV.PUSH Q6H PRN PRN Reason: NAUSEA Pantoprazole Sodium (Protonix Inj) 40 mg IV.PUSH Q12H [facility] Polyethylene Glycol/Electrolytes (Colyte Liq) 4,000 ml PO ONCE ONE Stop: 04/20/18 14:01 Sodium Chloride (Ns Flush) 2 ml IV.FLUSH BID [facility] Last Admin: 04/19/18 08:28 Dose: 2 ml Sodium Chloride (Ns Flush) 2 ml IV.FLUSH PRN PRN PRN Reason: FLUSH AFTER USING IV ACCESS <James Lopez - Last Filed: 04/19/18 14:31> Allergies Allergy/AdvReac Type Severity Reaction Status Date / Time penicillin G Allergy Severe hives Verified 04/18/18 15:42 Sulfa (Sulfonamide Allergy Severe hives Verified 04/18/18 15:42 Antibiotics) Home Medications Medication Instructions Recorded Confirmed Type atorvastatin 40 mg PO DAILY 04/18/18 04/18/18 History bupropion HCl 300 mg PO QAM 04/18/18 04/18/18 History carvedilol 25 mg PO DAILY 04/18/18 04/18/18 History metformin 1,000 mg PO BID 04/18/18 04/18/18 History olmesartan-hydrochlorothiazide 1 tab PO DAILY 04/18/18 04/18/18 History [Benicar HCT] pioglitazone [Actos] 45 mg PO DAILY 04/18/18 04/18/18 History sitagliptin [Januvia] 100 mg PO DAILY 04/18/18 04/18/18 History Exam Vital signs: Vital Signs 04/18/18 15:24 04/18/18 15:30 04/18/18 15:34 Temperature 98.1 F Pulse Rate 94 H 87 Respiratory Rate 20 18 Blood Pressure 169/72 H 173/77 H Pulse Oximetry 96 94 L 98 04/18/18 16:00 04/18/18 16:05 04/18/18 18:37 Temperature Pulse Rate 87 83 Respiratory Rate 18 18 Blood Pressure Pulse Oximetry 98 98 04/18/18 19:18 04/18/18 20:00 04/18/18 20:15 Temperature 96.6 F L Pulse Rate 77 89 79 Respiratory Rate 18 17 Blood Pressure 105/49 L 179/81 H Pulse Oximetry 98 94 L 04/19/18 04:20 04/19/18 04:33 04/19/18 05:08 Temperature 97.7 F Pulse Rate 88 86 84 Respiratory Rate 18 Blood Pressure 149/69 H Pulse Oximetry 98 04/19/18 07:10 04/19/18 08:00 04/19/18 11:58 Temperature 96.7 F L 98.4 F Pulse Rate 88 85 83 Respiratory Rate 20 20 Blood Pressure 189/84 H 178/81 H Pulse Oximetry 97 100 Intake & Output 04/18/18 04/19/18 04/19/18 18:59 06:59 18:59 Weight 122.47 kg 122.47 kg Other: Date of Last Bowel Movement 04/18/18 04/18/18 - Constitutional mild distress, morbidly obese, cooperative - Routine HEENT Exam Head: Present: normocephalic ENT: Present: mucous membranes moist - Routine Neck Exam Present: supple - Routine Respiratory Exam Present: accessory muscle use (Low volumes mild diminished breath sounds in the bases but no rhonchi or wheezing) - Routine Abdominal Exam Present: soft (Round, obese,), normoactive bowel sounds (No obvious tenderness to light palpation) - Routine Extremities Exam Present: pulses intact - Routine Skin Exam Present: intact, pallor (Mild) - Routine Neurological Exam Present: alert <Taisha Romano - Last Filed: 04/19/18 14:16> Vital signs: Vital Signs 04/18/18 15:24 04/18/18 15:30 04/18/18 15:34 Temperature 98.1 F Pulse Rate 94 H 87 Respiratory Rate 20 18 Blood Pressure 169/72 H 173/77 H Pulse Oximetry 96 94 L 98 04/18/18 16:00 04/18/18 16:05 04/18/18 18:37 Temperature Pulse Rate 87 83 Respiratory Rate 18 18 Blood Pressure Pulse Oximetry 98 98 04/18/18 19:18 04/18/18 20:00 04/18/18 20:15 Temperature 96.6 F L Pulse Rate 77 89 79 Respiratory Rate 18 17 Blood Pressure 105/49 L 179/81 H Pulse Oximetry 98 94 L 04/19/18 04:20 04/19/18 04:33 04/19/18 05:08 Temperature 97.7 F Pulse Rate 88 86 84 Respiratory Rate 18 Blood Pressure 149/69 H Pulse Oximetry 98 04/19/18 07:10 04/19/18 08:00 04/19/18 11:58 Temperature 96.7 F L 98.4 F Pulse Rate 88 85 83 Respiratory Rate 20 20 Blood Pressure 189/84 H 178/81 H Pulse Oximetry 97 100 Intake & Output 04/18/18 04/19/18 04/19/18 18:59 06:59 18:59 Weight 122.47 kg 122.47 kg Other: Date of Last Bowel Movement 04/18/18 04/18/18 <James Lopez - Last Filed: 04/19/18 14:31> Results - Labs CBC & Chem 7: 04/18/18 16:00 04/18/18 16:00 Labs: Laboratory Results - last 24 hr 04/18/18 04/18/18 04/18/18 16:00 16:00 16:00 WBC 7.8 RBC 3.13 L Hgb 8.9 L Hct 26.7 L MCV 85.5 MCH 28.4 MCHC 33.2 RDW 16.4 Plt Count 224 MPV 7.6 Neut % (Auto) 77.9 H Lymph % (Auto) 8.3 L Andrews % (Auto) 8.9 H Eos % (Auto) 4.2 H Baso % (Auto) 0.7 Neut # (Auto) 6.1 Lymph # (Auto) 0.7 L Andrews # (Auto) 0.7 Eos # (Auto) 0.3 Baso # (Auto) 0.1 WBC Differential . Differential Comment Auto diff final PT 10.1 INR 1.0 APTT 30.1 D-Dimer Quant (PE/DVT) Sodium 142 Potassium 4.1 Chloride 106 Carbon Dioxide 26.2 Anion Gap 10 BUN 23 H Creatinine 1.46 H Estimated GFR 47 L Random Glucose 206 H Calcium 8.5 Total Bilirubin 0.5 AST 15 ALT 16 Alkaline Phosphatase 145 H Total Creatine Kinase 33 L Troponin I Less than 0.02 L B-Natriuretic Peptide Total Protein 7.4 Albumin 3.0 L 04/18/18 04/18/18 04/18/18 16:00 16:00 19:24 WBC RBC Hgb Hct MCV MCH MCHC RDW Plt Count MPV Neut % (Auto) Lymph % (Auto) Andrews % (Auto) Eos % (Auto) Baso % (Auto) Neut # (Auto) Lymph # (Auto) Andrews # (Auto) Eos # (Auto) Baso # (Auto) WBC Differential Differential Comment PT INR APTT D-Dimer Quant (PE/DVT) 4.37 H Sodium Potassium Chloride Carbon Dioxide Anion Gap BUN Creatinine Estimated GFR Random Glucose Calcium Total Bilirubin AST ALT Alkaline Phosphatase Total Creatine Kinase 32 L Troponin I Less than 0.02 L B-Natriuretic Peptide 170 H Total Protein Albumin 04/18/18 21:45 WBC RBC Hgb Hct MCV MCH MCHC RDW Plt Count MPV Neut % (Auto) Lymph % (Auto) Andrews % (Auto) Eos % (Auto) Baso % (Auto) Neut # (Auto) Lymph # (Auto) Andrews # (Auto) Eos # (Auto) Baso # (Auto) WBC Differential Differential Comment PT INR APTT D-Dimer Quant (PE/DVT) Sodium Potassium Chloride Carbon Dioxide Anion Gap BUN Creatinine Estimated GFR Random Glucose Calcium Total Bilirubin AST ALT Alkaline Phosphatase Total Creatine Kinase 38 L Troponin I Less than 0.02 L B-Natriuretic Peptide Total Protein Albumin - Imaging Impressions Chest X-Ray 04/18/18 15:49 CONCLUSION: The cardiomediastinal contours are at upper limits of normal in size. No focal consolidation. Chest CTA 04/18/18 17:37 CONCLUSION: 1. No CT evidence for pulmonary artery embolism as questioned. 2. 11 mm right upper lobe subpleural nodule, stable in comparison to report of 2014 CT exam. Therefore, likely benign. 3. 5 mm nodule in the right middle lobe adjacent a calcified granuloma. This was not previously reported although prior exams are not available for direct comparison. Routine follow-up of sub-6 mm nodules is not recommended by 2017 Fleischner criteria. However, 6-12 month follow-up exam may be obtained if patient is at high risk. 4. Coronary artery calcifications. <Taisha Romano - Last Filed: 04/19/18 14:16> - Labs CBC & Chem 7: 04/18/18 16:00 04/18/18 16:00 Labs: Laboratory Results - last 24 hr 04/18/18 04/18/18 04/18/18 16:00 16:00 16:00 WBC 7.8 RBC 3.13 L Hgb 8.9 L Hct 26.7 L MCV 85.5 MCH 28.4 MCHC 33.2 RDW 16.4 Plt Count 224 MPV 7.6 Neut % (Auto) 77.9 H Lymph % (Auto) 8.3 L Andrews % (Auto) 8.9 H Eos % (Auto) 4.2 H Baso % (Auto) 0.7 Neut # (Auto) 6.1 Lymph # (Auto) 0.7 L Andrews # (Auto) 0.7 Eos # (Auto) 0.3 Baso # (Auto) 0.1 WBC Differential . Differential Comment Auto diff final PT 10.1 INR 1.0 APTT 30.1 D-Dimer Quant (PE/DVT) Sodium 142 Potassium 4.1 Chloride 106 Carbon Dioxide 26.2 Anion Gap 10 BUN 23 H Creatinine 1.46 H Estimated GFR 47 L Random Glucose 206 H Calcium 8.5 Total Bilirubin 0.5 AST 15 ALT 16 Alkaline Phosphatase 145 H Total Creatine Kinase 33 L Troponin I Less than 0.02 L B-Natriuretic Peptide Total Protein 7.4 Albumin 3.0 L 04/18/18 04/18/18 04/18/18 16:00 16:00 19:24 WBC RBC Hgb Hct MCV MCH MCHC RDW Plt Count MPV Neut % (Auto) Lymph % (Auto) Andrews % (Auto) Eos % (Auto) Baso % (Auto) Neut # (Auto) Lymph # (Auto) Andrews # (Auto) Eos # (Auto) Baso # (Auto) WBC Differential Differential Comment PT INR APTT D-Dimer Quant (PE/DVT) 4.37 H Sodium Potassium Chloride Carbon Dioxide Anion Gap BUN Creatinine Estimated GFR Random Glucose Calcium Total Bilirubin AST ALT Alkaline Phosphatase Total Creatine Kinase 32 L Troponin I Less than 0.02 L B-Natriuretic Peptide 170 H Total Protein Albumin 04/18/18 21:45 WBC RBC Hgb Hct MCV MCH MCHC RDW Plt Count MPV Neut % (Auto) Lymph % (Auto) Andrews % (Auto) Eos % (Auto) Baso % (Auto) Neut # (Auto) Lymph # (Auto) Andrews # (Auto) Eos # (Auto) Baso # (Auto) WBC Differential Differential Comment PT INR APTT D-Dimer Quant (PE/DVT) Sodium Potassium Chloride Carbon Dioxide Anion Gap BUN Creatinine Estimated GFR Random Glucose Calcium Total Bilirubin AST ALT Alkaline Phosphatase Total Creatine Kinase 38 L Troponin I Less than 0.02 L B-Natriuretic Peptide Total Protein Albumin - Imaging Impressions Chest X-Ray 04/18/18 15:49 CONCLUSION: The cardiomediastinal contours are at upper limits of normal in size. No focal consolidation. Chest CTA 04/18/18 17:37 CONCLUSION: 1. No CT evidence for pulmonary artery embolism as questioned. 2. 11 mm right upper lobe subpleural nodule, stable in comparison to report of 2014 CT exam. Therefore, likely benign. 3. 5 mm nodule in the right middle lobe adjacent a calcified granuloma. This was not previously reported although prior exams are not available for direct comparison. Routine follow-up of sub-6 mm nodules is not recommended by 2017 Fleischner criteria. However, 6-12 month follow-up exam may be obtained if patient is at high risk. 4. Coronary artery calcifications. <James Lopez - Last Filed: 04/19/18 14:31> Assessment and Plan - Plan shortness of breath. He was initially seen and worked up per cardiology but during his workup it was noted that patient has had symptomatic anemia with melena stools times 2 weeks and some bright red rectal bleeding x3 times over the past month. Patient notes he does have some history of constipation and some straining, but usually bowel movements are every 1 or 2 days. Patient denies any diarrhea. Patient does note occasional dyspepsia which has seemed to worsen over the past 2 weeks but no dysphasia. He also notes symptoms of lightheadedness and dizziness especially when standing up or after eating. Patient denies any family history of colon cancer and notes last colonoscopy was approximately 10 years ago within normal limits. Patient notes no previous EGD. Labs were reviewed noting normal white count at 7.8, hemoglobin 8.9, positive d-dimer 4.37. CTA performed showing no pulmonary emboli. Gastroenterology was consulted to assist with his symptom management and plan of care. Dyspepsia with symptoms of GERD, chronic NSAIDs which could be causing his dyspepsia and possible ulcers or erosions Melena stools, #1 and #2 probably related to upper GI bleed Constipation acute on chronic with some straining noted with bowel movements Bright red rectal bleeding could be related to hemorrhoids, lower GI bleed Symptomatic anemia, notes some weakness and fatigue as well as some light dizziness worsening over the past 2 weeks Morbid obesity, aggregating factor to #1, discussed dietary needs with heart healthy diet and weight loss, reflux precautions and not eating late at night Plan Diet heart healthy Clear liquids in a.m. starting all day, encouraged hydration Consent for EGD colonoscopy Saturday a.m. 04/21/2018, procedure explained to patient and and placed on schedule GoLYTELY prep, will need clear return or call GI for further recommendations Monitor labs with special attention hemoglobin and transfuse if needed, plan is for 1 unit today per hospitalist PPI Bowel regimen Zofran as needed Further recommendations to follow Patient was seen per myself and Dr. Lopez, note was written on his behalf <Taisha Romano - Last Filed: 04/19/18 14:16> - Attending Attestation Seen and examined, plan as above, will follow up with you. Thank you for the consult. <James Lopez - Last Filed: 04/19/18 14:31>
--- NOTE | 2018-04-19 14:16 | ECG ---
Date Performed: 04/18/2018 Time Performed: 21:48:33 PTAGE: 72 years EKG: Sinus rhythm WITH FREQUENT VENTRICULAR PREMATURE COMPLEXES LOW QRS VOLTAGE IN PRECORDIAL LEADS ABNORMAL RHYTHM EC G Poor R wave progression PREVIOUS TRACING : 04/18/2018 19.26 DOCTOR: Estuardo Stokes Interpretating Date/Time 04/19/2018 14:14:42
--- NOTE | 2018-04-19 14:17 | ECG ---
Date Performed: 04/18/2018 Time Performed: 19:26:21 PTAGE: 72 years EKG: Sinus rhythm WITH OCCASIONAL VENTRICULAR PREMATURE COMPLEXES WITH OCCASIONAL SUPRAVENTRICULAR PREMATURE COMPLEXES LOW QRS VOLTAGE IN PRECORDIAL LEADS BORDERLINE ECG INTERPRETATION BASED ON A DEFAULT AGE OF 40 YEARS No significant change NO PREVIOUS TRACING DOCTOR: Estuardo Stokes Interpretating Date/Time 04/19/2018 14:15:54
--- NOTE | 2018-04-19 14:18 | ECG ---
Date Performed: 04/18/2018 Time Performed: 16:35:07 PTAGE: 72 years EKG: Sinus rhythm WITH OCCASIONAL VENTRICULAR PREMATURE COMPLEXES LOW QRS VOLTAGE IN PRECORDIAL LEADS BORDERLINE ECG N o significant change PREVIOUS TRACING : 08/24/2015 16.22 DOCTOR: Estuardo Stokes Interpretating Date/Time 04/19/2018 14:18:08
--- NOTE | 2018-04-19 14:26 | P.PN ---
Subjective Interval history: 72 years old male taking ADvil on and off last use for a week a week ago for low back pain came in with black tarry stools no complains of abdominal pain , nausea or vomiting Physical Exam Vital signs: Vital Signs 04/18/18 15:24 04/18/18 15:30 04/18/18 15:34 Temperature 98.1 F Pulse Rate 94 H 87 Respiratory Rate 20 18 Blood Pressure 169/72 H 173/77 H Pulse Oximetry 96 94 L 98 04/18/18 16:00 04/18/18 16:05 04/18/18 18:37 Temperature Pulse Rate 87 83 Respiratory Rate 18 18 Blood Pressure Pulse Oximetry 98 98 04/18/18 19:18 04/18/18 20:00 04/18/18 20:15 Temperature 96.6 F L Pulse Rate 77 89 79 Respiratory Rate 18 17 Blood Pressure 105/49 L 179/81 H Pulse Oximetry 98 94 L 04/19/18 04:20 04/19/18 04:33 04/19/18 05:08 Temperature 97.7 F Pulse Rate 88 86 84 Respiratory Rate 18 Blood Pressure 149/69 H Pulse Oximetry 98 04/19/18 07:10 04/19/18 08:00 04/19/18 11:58 Temperature 96.7 F L 98.4 F Pulse Rate 88 85 83 Respiratory Rate 20 20 Blood Pressure 189/84 H 178/81 H Pulse Oximetry 97 100 Intake & Output 04/18/18 04/19/18 04/19/18 18:59 06:59 18:59 Weight 122.47 kg 122.47 kg Other: Date of Last Bowel Movement 04/18/18 04/18/18 Narrative: GENERAL: Alert WN, WD, NAD, pleasant, obese, male HEAD: NC, AT EYES: Sclera clear, conjunctiva without injection NECK: Supple, no masses, trachea midline CV: RRR, without murmur, rub, gallop, no JVD, S1-S2 RESP: Clear lungs throughout bilateral, no crackles, wheeze, rhonchi, symmetrical chest rise, nonlabored, able to speak in full sentences ABD: Soft, NT, ND, positive bowel tone EXT: Pulses +2x4, +2 lower extremity dependent edema MS: Normal tone x4 extremities, nontender, no obvious deformities, full range of motion NEURO: Motor strength 5/5 PSYCH: A+O x3, pleasant affect, appropriate speech, mood, insight and judgment SKIN: Normal turgor, normal texture, no lesions, no rashes, brisk cap refill, even hair distribution Results - Labs CBC & Chem 7: 04/20/18 06:49 04/20/18 06:49 Laboratory Results - last 24 hr 04/18/18 04/18/18 04/18/18 16:00 16:00 16:00 WBC 7.8 RBC 3.13 L Hgb 8.9 L Hct 26.7 L MCV 85.5 MCH 28.4 MCHC 33.2 RDW 16.4 Plt Count 224 MPV 7.6 Neut % (Auto) 77.9 H Lymph % (Auto) 8.3 L [place] % (Auto) 8.9 H Eos % (Auto) 4.2 H Baso % (Auto) 0.7 Neut # (Auto) 6.1 Lymph # (Auto) 0.7 L [place] # (Auto) 0.7 Eos # (Auto) 0.3 Baso # (Auto) 0.1 WBC Differential . Differential Comment Auto diff final PT 10.1 INR 1.0 APTT 30.1 D-Dimer Quant (PE/DVT) Sodium 142 Potassium 4.1 Chloride 106 Carbon Dioxide 26.2 Anion Gap 10 BUN 23 H Creatinine 1.46 H Estimated GFR 47 L Random Glucose 206 H Calcium 8.5 Total Bilirubin 0.5 AST 15 ALT 16 Alkaline Phosphatase 145 H Total Creatine Kinase 33 L Troponin I Less than 0.02 L B-Natriuretic Peptide Total Protein 7.4 Albumin 3.0 L 04/18/18 04/18/18 04/18/18 16:00 16:00 19:24 WBC RBC Hgb Hct MCV MCH MCHC RDW Plt Count MPV Neut % (Auto) Lymph % (Auto) [place] % (Auto) Eos % (Auto) Baso % (Auto) Neut # (Auto) Lymph # (Auto) [place] # (Auto) Eos # (Auto) Baso # (Auto) WBC Differential Differential Comment PT INR APTT D-Dimer Quant (PE/DVT) 4.37 H Sodium Potassium Chloride Carbon Dioxide Anion Gap BUN Creatinine Estimated GFR Random Glucose Calcium Total Bilirubin AST ALT Alkaline Phosphatase Total Creatine Kinase 32 L Troponin I Less than 0.02 L B-Natriuretic Peptide 170 H Total Protein Albumin 04/18/18 21:45 WBC RBC Hgb Hct MCV MCH MCHC RDW Plt Count MPV Neut % (Auto) Lymph % (Auto) [place] % (Auto) Eos % (Auto) Baso % (Auto) Neut # (Auto) Lymph # (Auto) [place] # (Auto) Eos # (Auto) Baso # (Auto) WBC Differential Differential Comment PT INR APTT D-Dimer Quant (PE/DVT) Sodium Potassium Chloride Carbon Dioxide Anion Gap BUN Creatinine Estimated GFR Random Glucose Calcium Total Bilirubin AST ALT Alkaline Phosphatase Total Creatine Kinase 38 L Troponin I Less than 0.02 L B-Natriuretic Peptide Total Protein Albumin - Imaging Impressions Chest X-Ray 04/18/18 15:49 CONCLUSION: The cardiomediastinal contours are at upper limits of normal in size. No focal consolidation. Chest CTA 04/18/18 17:37 CONCLUSION: 1. No CT evidence for pulmonary artery embolism as questioned. 2. 11 mm right upper lobe subpleural nodule, stable in comparison to report of 2013 CT exam. Therefore, likely benign. 3. 5 mm nodule in the right middle lobe adjacent a calcified granuloma. This was not previously reported although prior exams are not available for direct comparison. Routine follow-up of sub-6 mm nodules is not recommended by 2017 Fleischner criteria. However, 6-12 month follow-up exam may be obtained if patient is at high risk. 4. Coronary artery calcifications. 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
[2018-04-19] MEDS: Pantoprazole Inj 40 MG Vial IV.PUSH SCH (16:31)
[2018-04-19 17:11] LABS: Baso # (Auto) 0.1 th/mm3 (0.0-0.2); Baso % (Auto) 0.7 % (0.0-2.0); Eos # (Auto) 0.3 th/mm3 (0.0-0.4); Eos % (Auto) 4.2 % (0.0-4.0); Hematocrit 27.3 % (39.0-51.0); Hemoglobin 8.9 gm/dL (13.0-17.0); Lymph # (Auto) 0.6 th/mm3 (1.0-4.8); Lymph % (Auto) 8.9 % (9.0-44.0); Mean Corpuscular HGB Conc 32.5 % (32.0-36.0); Mean Corpuscular Hemoglobin 27.8 pg (27.0-34.0); Mean Corpuscular Volume 85.4 fL (80.0-100.0); Mono # (Auto) 0.7 th/mm3 (0.0-0.9); Mono % (Auto) 9.3 % (0.0-8.0); Neut # (Auto) 5.6 th/mm3 (1.8-7.7); Neut % (Auto) 76.9 % (16.0-70.0); Platelet Count 223 th/mm3 (150-450); Red Cell Distribution Width 16.2 % (11.6-17.2); White Blood Count 7.3 th/mm3 (4.0-11.0)
[2018-04-20] MEDS: Pantoprazole Inj 40 MG Vial IV.PUSH SCH ×2 (03:18→15:38)
[2018-04-20 07:16] LABS: Baso % (Auto) 0.7 % (0.0-2.0); Eos # (Auto) 0.3 th/mm3 (0.0-0.4); Eos % (Auto) 4.9 % (0.0-4.0); Hematocrit 26.8 % (39.0-51.0); Hemoglobin 8.5 gm/dL (13.0-17.0); Lymph # (Auto) 0.6 th/mm3 (1.0-4.8); Lymph % (Auto) 8.8 % (9.0-44.0); Mean Corpuscular HGB Conc 31.7 % (32.0-36.0); Mean Corpuscular Hemoglobin 26.8 pg (27.0-34.0); Mean Corpuscular Volume 84.6 fL (80.0-100.0); Mean Platelet Volume 7.5 fL (7.0-11.0); Mono # (Auto) 0.7 th/mm3 (0.0-0.9); Mono % (Auto) 10.5 % (0.0-8.0); Neut # (Auto) 5.3 th/mm3 (1.8-7.7); Neut % (Auto) 75.1 % (16.0-70.0); Platelet Count 204 th/mm3 (150-450); Red Blood Count 3.16 mil/mm3 (4.50-5.90); Red Cell Distribution Width 16.2 % (11.6-17.2); White Blood Count 7.1 th/mm3 (4.0-11.0)
[2018-04-20 07:45] LABS: Calcium 8.2 mg/dL (8.5-10.1); Carbon Dioxide 28.5 meq/L (21.0-32.0)
[2018-04-20] MEDS: hydroCHLOROthiazide 25 MG Tablet PO SCH (08:35)
[2018-04-20] MEDS: buPROPion 100 MG Tablet PO SCH (08:35)
[2018-04-20] MEDS: Carvedilol 12.5 MG Tablet PO SCH (08:35)
[2018-04-20] MEDS ORDERED: PEG 3350/E-Lyte Soln 4000 ML Bottle PO ONE (14:00)
--- NOTE | 2018-04-20 16:26 | P.PNIM ---
Subjective Interval history: Patient is seen sitting up on side of bed eating breakfast. He tells me that he is doing fine with no new concerns. Waiting for scope tomorrow. Has not noticed any additional bleeding. No dizziness or syncope. No chest pain or shortness of breath. He does have some bilateral lower leg edema. He blames this on excessive salty food through the holidays. Physical Exam Vital signs: Last Vital Signs Temp 98.0 F 04/20/18 15:07 Pulse 97 H 04/20/18 15:07 Resp 16 04/20/18 15:07 BP 166/82 H 04/20/18 15:07 Pulse Ox 97 04/20/18 15:07 Intake & Output 04/18/18 04/19/18 04/20/18 04/21/18 06:59 06:59 06:59 06:59 Intake Total 480 / 480 Output Total 600 / 600 Balance 480 / 480 -600 / -600 Weight 122.47 kg 129 kg Narrative: GENERAL: Well-nourished, well-developed adult male in no obvious distress. SKIN: Warm and dry. HEAD: Atraumatic. Normocephalic. CARDIOVASCULAR: Regular rate and rhythm. RESPIRATORY: No accessory muscle use. Clear to auscultation. Breath sounds equal bilaterally. GASTROINTESTINAL: Abdomen obese, soft, non-tender, non-distended. Positive bowel sounds. MUSCULOSKELETAL: Bilateral lower leg edema +1 pitting. No obvious deformities. NEUROLOGICAL: Awake and alert. No obvious cranial nerve deficits. Motor grossly within normal limits. Normal speech. PSYCHIATRIC: Appropriate mood and affect; insight and judgment good. Results Labs CBC & Chem 7: 04/20/18 06:49 04/20/18 06:49 Assessment and Plan Plan Patient is a 72-year-old male with a past medical history of CAD with history of MD, hypertension, hyperlipidemia, diabetes, and depression who initially came into the emergency room with a complaint of chest pain. He was evaluated in the chest pain center where he eventually also reported 1 week of black tarry stools. Anemia secondary to GI bleed; hemoglobin 8.9 at admit -Gastroenterology consulted; appreciate assistance -Monitor H&H; currently stable -Planned scope 04/21; clear liquids with prep tonight -Patient encouraged to avoid NSAID use in the future Chest pain -EKG showed some slight flattening of the T waves with possible ischemia. -Cardiology following. stress test is now indicated right now due to emergent need for evaluation of GI bleed. Lung nodules -Incidental finding on CTA. 11 mm known nodule stable plus new 5 mm nodule -Recommend following up in 6-12 months with repeat exam Chronic conditions: Restart medications as indicated. SS for DM. DVT prophylaxis: SCDs, chemical prophylaxis not indicated due to bleed Discharge planning: Likely home once cleared by GI and cardiology Progress Note: Quality VTE Deep Vein Thrombosis/Pulmonary Embolism Present on Admission: No
[2018-04-21] MEDS: Pantoprazole Inj 40 MG Vial IV.PUSH SCH (03:52)
[2018-04-21] MEDS: hydroCHLOROthiazide 25 MG Tablet PO SCH (08:10)
[2018-04-21] MEDS: Carvedilol 12.5 MG Tablet PO SCH (08:11)
[2018-04-21] MEDS: buPROPion 100 MG Tablet PO SCH (08:12)
--- NOTE | 2018-04-21 10:39 | GIPROC ---
[facility] [address] [facility]. [facility], [address] EGD PROCEDURE REPORT EXAM DATE: 04/21/2018 PATIENT NAME: Ken Mejias MR #: [id number] BIRTHDATE: 1945 ATTENDING: James Lopez MD ORDER #: [id number] ELECTRIC ACCOUNTING MACHINE OPERATOR: Migel Jacques and Britt Evans STATUS: inpatient INDICATIONS: The patient is a 72 yr old male here for an EGD due to hematochezia PROCEDURE PERFORMED: EGD w/ biopsy MEDICATIONS: Per Anesthesia and None. TOPICAL ANESTHETIC: none CONSENT: The patient understands the risks and benefits of the procedure and understands that these risks include, but are not limited to: sedation, allergic reaction, infection, perforation and/or bleeding. Alternative means of evaluation and treatment include, among others: physical exam, x-rays, and/or surgical intervention. The patient elects to proceed with this endoscopic procedure. medical equipment was checked for proper function. Hand hygiene and appropriate measures for infection prevention was taken. After the risks, benefits and alternatives of the procedure were thoroughly explained, Informed consent was verified, confirmed and timeout was successfully executed by the treatment team. The patient was anesthetized with topical anesthesia and the Pentax EG-[id number] endoscope was introduced through the mouth and advanced to the second portion of the duodenum. Retroflexion was performed and was normal The gastroscope was then slowly withdrawn and removed. ESOPHAGUS: There was a 4cm segment of suspected Mcmanus's esophagus found in the lower third of the esophagus. There was no nodular mucosa noted in the Mcmanus's segment. Multiple biopsies were performed using cold forceps. Sample sent for histology. STOMACH: There was mild gastritis in the gastric antrum. A biopsy was performed using cold forceps. Sample sent for histology. DUODENUM: The duodenal mucosa appeared normal in the duodenal bulb and 2nd part duodenum. ADVERSE EVENTS: There were no complications. IMPRESSIONS: 1. There was a 4cm segment of suspected Mcmanus's esophagus found in the lower third of the esophagus; multiple biopsies were performed 2. There was mild gastritis in the gastric antrum; biopsy was performed 3. Normal duodenal mucosa in the duodenal bulb and 2nd part duodenum 4. Retroflexion was performed and was normal RECOMMENDATIONS: 1. Await biopsy results. Biopsy results will not be ready for 7-10 days. If you don't hear from us in two weeks, call our office for biopsy results. 2. Continue PPI PATIENT CONDITION: stable DISPOSITION: Observation REPEAT EXAM: Return as needed for EGD pending biopsy results James Lopez MD eSigned: James Lopez MD 04/21/2018 10:38 AM cc: PATIENT NAME: Ken Mejias MR#: [id number]
--- NOTE | 2018-04-21 10:42 | GIPROC ---
[facility] [address] [facility]. [facility], [address] COLONOSCOPY PROCEDURE REPORT EXAM DATE: 04/21/2018 PATIENT NAME: Ken Mejias MR #: [id number] BIRTHDATE: 1945 ENDOSCOPIST: James Lopez MD ORDER #: [id number] MARBLE RUBBER: Migel Jacques and Britt Evans STATUS: inpatient INDICATIONS: The patient is a 72 yr old male here for a colonoscopy due to hematochezia PROCEDURE PERFORMED: Colonoscopy, diagnostic MEDICATIONS: Per Anesthesia and None. PREP QUALITY: fair PREP TYPE:GoLytely ESTIMATED BLOOD LOSS: None CONSENT: The patient understands the risks and benefits of the procedure and understands that these risks include, but are not limited to: sedation, allergic reaction, infection, perforation and/or bleeding. Alternative means of evaluation and treatment include, among others: physical exam, x-rays, and/or surgical intervention. The patient elects to proceed with this endoscopic procedure. medical equipment was checked for proper function. Hand hygiene and appropriate measures for infection prevention was taken. After the risks, benefits and alternatives of the procedure were thoroughly explained, Informed consent was verified, confirmed and timeout was successfully executed by the treatment team. A digital exam revealed no abnormalities of the rectum The New ItemEG-[id number] (Std Gastro) endoscope was introduced through the anus and advanced to the cecum, which was identified by both the appendix and ileocecal valve. The instrument was then slowly withdrawn as the colon was fully examined. COLON FINDINGS: Severe diverticulosis was noted in the sigmoid colon and descending colon. No bleeding was noted from the diverticulosis. Retroflexed views revealed no abnormalities The scope was then completely withdrawn from the patient and the procedure terminated. PROCEDURE WITHDRAWAL TIME:8minutes ADVERSE EVENTS: There were no complications. IMPRESSIONS: 1. Severe diverticulosis was noted in the sigmoid colon and descending colon 2. Otherwise normal exam, suboptimal bowel prep in the right colon. RECOMMENDATIONS: 1. Continue surveillance 2. High fiber diet. Avoid nuts, seeds, and popcorn. Chew your food well. RECALL: Return 5 years Colonoscopy James Lopez MD eSigned: James Lopez MD 04/21/2018 10:42 AM cc:
--- NOTE | 2018-04-21 12:31 | P.DS ---
DS: Providers Date of admission: 04/19/18 14:07 Primary care physician: Jonathan Rey MD Consults: 04/19/18 12:06 Consult to Gastroenterology Routine Consulting Provider: James Lopez Reason for Consultation: possible lower GIB Notified:: Service Spoke with:: OSMAR Date Notified:: 04/19/18 Time Notified:: 12:14 Ordering Provider: BOB Consult to Hospitalist Routine Consulting Provider: Argelia Otoole Reason for Consultation: GIB Notified:: Service Spoke with:: OSMAR Date Notified:: 04/19/18 Time Notified:: 12:15 Ordering Provider: BOB Anticipated date of discharge: 04/21/18 Brief History from admission: 72-year-old male with history of type 2 diabetes, hypertension, peripheral artery disease, and sleep apnea presents the emergency room for exertional dyspnea. Onset 04/13/18. Becomes dyspneic after walking short distances which is new to him. Dyspnea accompanied with chest tightness. Generally recovers from dyspnea and chest tightness within 3-5 minutes of resting. No other associated symptoms of nausea, vomiting, or diaphoresis. Denies known congestive heart failure. No orthopnea. follows with Dr. Carias. No recent cardiac testing. Does not recall the past cardiac catheterization, although reports being told had a myocardial infarction by his broke beater operator. No change in chronic pedal edema or weight gain. Hemoglobin 8.9. Denies history of anemia. Reports 1 week black tarry stools. No history gastric ulcers or GERD. Occasionally takes ibuprofen 800 mg for left hip pain, however limites self from taking past 4 days consecutively. History of colonoscopy reported to be normal 2 years ago. Does not recall having had EGD. No recent illness, fever, or injury. Past cardiac testing Per reviewed medical records had a nuclear stress test February 02 showing evidence for prior inferior PA with basal inferolateral ischemia and had been treated medically. Social history Known diabetes, hypertension, coronary artery disease, and hyperlipidemia. Known peripheral arterial disease. Former 3 pack a day smoker, quit 20 years ago. . 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 Endorses sedentary lifestyle. Patient update on day of discharge: Patient completed EGD and colonoscopy still reports some shortness of breath with physical exertion and mild dizziness when he gets up. He is open to getting 1 unit of packed red blood cell today. He has no abdominal pain. He would like to go home today. He denies any wheezing. He reports no recurrent chest pain. DS: Diagnosis Discharge Diagnosis (1) Anemia: Status: Chronic Diagnosis: Principal (2) Chest pain, rule out acute myocardial infarction: Status: Acute Diagnosis: Principal (3) Type 2 diabetes mellitus: Status: Chronic Diagnosis: Secondary (4) Mcmanus esophagus: Status: Suspected Diagnosis: Secondary (5) Gastritis: Status: Chronic Diagnosis: Secondary (6) Diverticulosis: Status: Chronic Diagnosis: Secondary DS: Summary 72-year-old white male with a past medical history of CAD, hypertension, hyperlipidemia, diabetes mellitus type 2 who initially came in with complaints of chest pain and one week history of black tarry stools along with dyspnea on exertion. He was initially seen a chest pain center and ruled out for acute PA with negative troponins. Patient had a CTA showed no PE and revealed stable 11 mm right upper lobe nodule and a new 5 mm nodule in the right middle lobe which recommended repeat CT chest and 6-12 months for follow-up for stability. These findings were discussed with the patient and he will follow-up with his primary care physician. In addition, he states that he had a nuclear stress test with his broke beater operator 6 months ago that was negative. He has appointment with Dr. Carias in 3 days for continued follow-up. Due to his findings of anemia and black tarry stools, GI service consulted and endoscopy colonoscopy was done which revealed suspected Mcmanus's esophagus requiring biopsy, gastritis, diverticulosis. Diet counseling was performed including high-fiber diet and avoidance of nut,seeds, and corn. He is to follow-up with GI in 1-2 weeks for biopsy results. Due to his symptomatic anemia of dyspnea on exertion and mild dizziness when he stands up, he was given 1 unit of packed red blood cell transfusion with repeat hemoglobin draw, continue iron supplements with follow- up with primary care physician. He was counseled should he see recurrent black stools or bloody stools to return back to the emergency room for further evaluation. Patient will be transitioned home with outpatient follow-up with his primary care physician Dr. Rey and broke beater operator Dr. Carias and GI service. Time Spent with Patient Total time spent providing and/or coordinating discharge services: Less than 30 minutes Quality: VTE Deep Vein Thrombosis/Pulmonary Embolism Present on Admission: No Results Pending studies at discharge: Pending at discharge 04/21/18 Surgical [PTH] Routine Labs on day of discharge: Labs from last 24 hours 04/21/18 07:56 POC Glucose 164 H Impressions ITS Impressions Chest X-Ray 04/18/18 15:49 CONCLUSION: The cardiomediastinal contours are at upper limits of normal in size. No focal consolidation. Chest CTA 04/18/18 17:37 CONCLUSION: 1. No CT evidence for pulmonary artery embolism as questioned. 2. 11 mm right upper lobe subpleural nodule, stable in comparison to report of 2013 CT exam. Therefore, likely benign. 3. 5 mm nodule in the right middle lobe adjacent a calcified granuloma. This was not previously reported although prior exams are not available for direct comparison. Routine follow-up of sub-6 mm nodules is not recommended by 2017 Fleischner criteria. However, 6-12 month follow-up exam may be obtained if patient is at high risk. 4. Coronary artery calcifications. Discharge Plan Discharge Disposition Patient Disposition: 01 Discharge Home Discharge Condition Condition: Good Discharge Order Discharge Orders: Discharge Order (Routine); Ordered 04/21/18 Ordered By: Natalia Almonte Discharge Details Discharge Comment: Discharge after transfusion and repeat labs drawn Physicians Team Primary Care Provider: Jonathan Rey Attending Provider: Natalia Almonte Other Providers: James Lopez ; Argelia Otoole Rxs /Orders / Referrals /Forms Prescriptions: New ferrous sulfate [FeroSul] 325 mg (65 mg iron) Tablet 325 mg PO BID@1200,1700 Qty: 60 RF: 0 pantoprazole 40 mg Tablet,Delayed Release (Dr/Ec) 40 mg PO DAILY Qty: 30 RF: 0 Continue atorvastatin 40 mg Tablet 40 mg PO DAILY RF: 0 carvedilol 25 mg Tablet 25 mg PO DAILY RF: 0 pioglitazone [Actos] 45 mg Tablet 45 mg PO DAILY RF: 0 metformin 1,000 mg Tablet 1,000 mg PO BID RF: 0 olmesartan-hydrochlorothiazide [Benicar HCT] 40-12.5 mg Tablet 1 tab PO DAILY RF: 0 bupropion HCl 300 mg Tablet Extended Release 24 Hr 300 mg PO QAM RF: 0 sitagliptin [Januvia] 100 mg Tablet 100 mg PO DAILY RF: 0 Referrals: Jonathan Rey MD [Primary Care Provider] - See Instructions Discharge Interventions Interventions: Discharge Planning - Case Management Last Done: 04/19/18 09:47 Status ED Status: Left Department
[2018-04-21] MEDS ORDERED: Sodium Chlor 0.9% Inj 250 ML IV.SIG SCH (13:00)
[2018-04-21] MEDS ORDERED: Ferrous Sulfate 325 MG Tablet PO SCH (17:00)
[2018-04-21 18:13] LABS: Hematocrit 28.9 % (39.0-51.0); Hemoglobin 9.6 gm/dL (13.0-17.0)
== END 2018-04-21 19:02 | disposition home or self-care (01) | DRG 378 ==
LOC: NEDA 15:12 → NEPC 15:12 → NEPGCP 20:08
PROVIDERS: ADMIT Family Medicine; ATTEND Family Medicine
PROC: COLONOS (2018-04-21 09:20)
PROC: PANENDO (2018-04-21 09:20)
DX: E11.51 Type 2 diabetes mellitus with diabetic peripheral angiopathy without gangrene; K29.70 Gastritis, unspecified, without bleeding; I25.2 Old myocardial infarction; E11.22 Type 2 diabetes mellitus with diabetic chronic kidney disease; E66.9 Obesity, unspecified; G47.30 Sleep apnea, unspecified; M19.90 Unspecified osteoarthritis, unspecified site; K22.70 Barrett's esophagus without dysplasia; K59.00 Constipation, unspecified; Z79.84 Long term (current) use of oral hypoglycemic drugs; I50.9 Heart failure, unspecified; I25.10 Atherosclerotic heart disease of native coronary artery without angina pectoris; Z87.891 Personal history of nicotine dependence; D50.0 Iron deficiency anemia secondary to blood loss (chronic); E78.5 Hyperlipidemia, unspecified; Z68.39 Body mass index [BMI] 39.0-39.9, adult; I13.0 Hypertensive heart and chronic kidney disease with heart failure and stage 1 through stage 4 chronic kidney disease, or unspecified chronic kidney disease; M50.90 Cervical disc disorder, unspecified, unspecified cervical region; F32.9 Major depressive disorder, single episode, unspecified; K92.1 Melena; R91.8 Other nonspecific abnormal finding of lung field; N18.3 Chronic kidney disease, stage 3 (moderate); K57.90 Diverticulosis of intestine, part unspecified, without perforation or abscess without bleeding
CPT/HCPCS: 36430; 71010; 71045; 71275; 80048; 80053; 82272; 82550; 82948; 82962; 83520; 83880; 84484; 85014; 85018; 85025; 85379; 85610; 85730; 86850; 86900; 86901; 86923; 88305; 88312; 93005; 94640; 94665; 99285; C9113; G0378; J7050; P9016; Q9967